=== PATIENT | male | born 1960 | race Hispanic/Latino ===

== ENCOUNTER 2022-05-10 06:44 | Day surgery (SDC) | payer OTHER ==
--- NOTE | 2022-05-08 15:16 | RAD REPORT ---
EXAM DESCRIPTION: RAD - Chest Pa And Lat (2 Views) - 05/08/2022 3:04 pm CLINICAL HISTORY: Pre op pending temporal artery biospy Chest pain. COMPARISON: No comparisons FINDINGS: The lungs are clear. The heart is normal in size. No displaced fractures. Cervical spine h ardware plate. IMPRESSION: No acute or concerning finding suspected.
[2022-05-08 15:17] LABS: SARS-CoV-2 Antigen Rapid Res Positive (Negative)
[2022-05-08 15:19] LABS: Potassium 3.8 mmol/L (3.5-5.1)
--- NOTE | 2022-05-09 10:53 | EKG ---
Test Date: 2022-05-08 Test Time: 14:46:03 Information Security Director: ARIELLA MEASUREMENT RESULTS: Intervals: Rate: 108 [place]: 272 QRSD: 104 QT: 322 QTc: 431 [place]: P: [place]: 272 QRS: -47 T: 55 INTERPRETIVE STATEMENTS: Sinus tachycardia with 1st degree AV block Left anterior fascicular block Abnormal ECG No previous ECG available for comparison Electronically Signed On 05-09-22 10:50:23 CDT by Gage Luna
[2022-05-10] MEDS ORDERED: propofoL 200 MG/20 ML VIAL IV ONE (07:05)
[2022-05-10] MEDS ORDERED: MIDAZOLAM HCL 2 MG/2 ML INJ ONE (07:05)
[2022-05-10] MEDS ORDERED: LIDOCAINE 2% MPF 5 ML VIAL ONE (07:06)
[2022-05-10] MEDS ORDERED: FENTANYL CITR 100 MCG/2 ML ONE (07:06)
[2022-05-10] MEDS ORDERED: BUPIVACAINE 0.5% PF 10 ML VIAL ONE (07:06)
[2022-05-10] MEDS ORDERED: ONDANSETRON 4 MG/2 ML VIAL ONE (07:13)
[2022-05-10] MEDS ORDERED: Ringers Lactate 1,000 ML IV ONE (07:28)
[2022-05-10] MEDS ORDERED: CEFAZOLIN SODIUM 1 GM/VIAL ONE (07:29)
[2022-05-10] MEDS ORDERED: LIDOCAINE 1% MPF 30 ML VIAL ONE (07:30)
[2022-05-10] MEDS ORDERED: HYDROCORTISONE SUC 250 MG INJ ONE (08:10)
[2022-05-10] MEDS ORDERED: HYDROCODONE/APAP 7.5/325 MG TAB PO PRN (08:25)
[2022-05-10] MEDS ORDERED: Mastisol Adhesive Liq ONE (08:28)
--- NOTE | 2022-05-10 08:29 | P.OP ---
Date of Service: 05/10/22 Preop diagnosis: Right-sided headache, vision change, rule out temporal arteritis Postop diagnosis: Same Procedure performed: Right temporal artery biopsy, Doppler Surgeon: Song Mccarthy MD Roll Hauler: None Estimated blood loss: Minimal Specimen: Right temporal artery Findings: As above Anesthesia: General Complications: None Drains: None Fluids and blood products: None applicable Disposition: Recovery room Operative note: Patient brought to the OR and placed in the supine position. General anesthesia began. Patient prepped and draped in the usual sterile fashion. Doppler device used to isolate branch of the right temporal artery. Lidocaine 1% infiltrated locally. 4 cm incision made. Subcutaneous tissue divided. A segment of temporal artery identified. Proximal and distal control obtained with sharp blunt dissection as well as a side branch. Then a 4 cm segment of temporal artery branch excised sent to pathology. The ends tied with 4-0 silk ties. Wound irrigated and bleeding controlled cautery. 4-0 chromic is required for subcutaneous tissue in close skin. Sterile dressing applied and patient awakened. Patient in the recovery room in good general condition. CC: Dr. Howell's office
[2022-05-10 10:00] VITALS: TEMP 97.1; O2SAT 100
[2022-05-10 10:04] VITALS: BP 126/91
== END 2022-05-10 09:30 | disposition home or self-care (01) ==
LOC: OR 06:44
PROVIDERS: ATTEND Surgery
PROC: 03BS0ZX Excision of Right Temporal Artery, Open Approach, Diagnostic (ICD-10-PCS; principal; 2022-05-10 07:30)
DX: I70.8 Atherosclerosis of other arteries (principal); H53.9 Unspecified visual disturbance; U07.1 COVID-19
CPT/HCPCS: 37609; 93005; 80048; 36415; 88305; 71046; 87811; J2704; J2001; J2250; J3010; J7120; J2405; J1720; J0690